=== PATIENT | male | born 1995 | race Caucasian/White ===

== ENCOUNTER 2019-04-07 22:53 | Emergency (ER) | payer MEDICAID ==
[~2019-04-07] VITALS: Ht 182.9 cm; Wt 120.0 kg
[2019-04-08] MEDS ORDERED: LIDOCAINE HCL/PF 1% 10 MG/ML 5ML VIAL IJ ONE (00:45)
[2019-04-08] MEDS ORDERED: IBUPROFEN 600MG TABLET PO ONE (00:45)
[2019-04-08] MEDS ORDERED: BACITRACIN ZINC OINT UDPKT TOP ONE (00:45)
[2019-04-08 02:30] VITALS: BP 131/67
== END 2019-04-08 02:37 | disposition home or self-care (01) ==
LOC: ER 22:53
DX: M79.644 Pain in right finger(s) (principal); F12.10 Cannabis abuse, uncomplicated
CPT/HCPCS: 12001; 73130; 99283; J3490; Z7610

== ENCOUNTER 2019-04-12 10:35 | Emergency (ER) | payer MEDICAID ==
[~2019-04-12] VITALS: Ht 180.3 cm; Wt 118.0 kg
[2019-04-12] MEDS ORDERED: BACITRACIN ZINC OINT UDPKT TOP ONE (11:30)
[2019-04-12] MEDS ORDERED: CEPHALEXIN 250MG CAPSULE PO ONE (11:30)
[2019-04-12] MEDS ORDERED: IBUPROFEN 600MG TABLET PO ONE (11:30)
[2019-04-12 12:07] VITALS: BP 130/77
== END 2019-04-12 12:08 | disposition home or self-care (01) ==
LOC: ER 10:35
DX: L03.011 Cellulitis of right finger (principal); F12.10 Cannabis abuse, uncomplicated; Z98.890 Other specified postprocedural states
CPT/HCPCS: 99284